=== PATIENT | male | born 1955 | race Caucasian/White ===

== ENCOUNTER 2023-04-13 20:23 | Outpatient (CLI) | payer MEDICARE, BC, SELFPAY ==
--- OUTSIDE RECORDS SUMMARY | 2023-04-13 20:27 | XMS_ITS | Continuity of Care Document ---
Author Name Unknown Organization [facility] Address [address] [place] [address] Phone Care Team Providers Care Gun Welder Name Role Phone Rosie Dunbar MD Unavailable Unavailable Allergies, Adverse Reactions, Alerts Substance Reaction Status Criticality No Known Allergies Active No Inform ation Medications Medication Instructions Dosage Effective Dates (start - stop) Status Comments CYMBALTA (unknown strength) Not Available - Active LIPITOR (unknown strength) Not Available - Active HYDROCODONE-ACETAMINOP HEN (unknown strength) Not Available - Active ELIQUIS (unknown strength) Not Available - Active SOTALOL (unknown strength) Not Available - Active CELEBREX (unknown strength) Not Available - Active OMEPRAZOLE (unknown strength) Not Available - Active LOSARTAN POTASSIUM (unknown strength) Not Available - Active FISH OIL (unknown strength) Not Available - Active Procedures Procedure Date Office/Outpatient Visit,Est, Mod 2019 X-Ray Exam Lower Spine 2-3 Views 2019 Office/Outpatient Visit,Est, Mod 2019 Postop Followup Visit X-Ray Exam Lower Spine 2-3 Views 2019 PSF, Lumbar - PA Reinsertion of Instrumentation - PA PEEK/ Cage/ Implant, For Interbody Fusio n - PA PSF, Lumbar ALIF / OLIF Anterior Lumbar Interbody Fu david Reinsertion of Instrumentation PEEK/ Cage/ Implant, For Interbody Fusio n Autograft, From Same Incision 0 Allograft, Morcelized, and/or BMP Office/Outpatient Visit,Est, Mod 2018 Office/Outpatient Visit,Est, Mod 2018 Office/Outpatient Visit,Est, Mod 2018 Office/Outpatient Visit,Est, Mod 2017 Office/Outpatient Visit,Est, Low 2017 X-Ray Exam Lower Spine 2-3 Views 2017 Office/Outpatient Visit,Est, Mod 2017 X-Ray Exam Lower Spine 2-3 Views 2017 Postop Followup Visit X-Ray Exam Lower Spine 2-3 Views 2017 Postop Followup Visit X-Ray Exam Lower Spine 2-3 Views 2016 Lumbar Spine Fusion, Posterolateral Remove Lumbar Spine Lamina, 1 Seg Insert Spine Fixation, Posterior 2016 Autograft, Spine Surgery, Local 017 Allograft, Spine Surg, Morselized Pa Assist Lumbar Spine Fusion, Posterola teral Remove Lumbar Spine Lamina, 1 Seg Pa Assist Insert Spine Fixation, Posteri or Office/Outpatient Visit,Est, Mod 2016 Office/Outpatient Visit,Est, Mod 2016 X-Ray Exam Lower Spine 2-3 Views 2016 Office/Outpatient Visit,Est, Mod 2016 Office/Outpatient Visit,Est, Mod 2015 Postop Followup Visit Special Serv Nec, Procedor Report Postop Followup Visit Remove Lumbar Spine Lamina, 1 Seg Pa Assist Remove Lumbar Spine Lamina, 1 Seg Office/Outpatient Visit,Est, Mod 2015 Office/Outpatient Visit,New, Mod 2013 X-Ray Exam Lower Spine 2-3 Views 2013 Advance Directives Directive Yes / No Effective Date File Name No Information Encounters Encounter Description Practice Location Reason(s) For Visit Diagnoses Date Provider Providers Copied on Encounter Office/Outpa tient Visit,Est, Mod [facility], [address], [place], [id number], [place] tel:[phone] [facility] Pseudarthrosis after fusion or arthrodesis 0 Mehbod Amir. [facility], [address] [place] [address], [id number] , . tel:[phone] Referring Provider: Beto Kerr [facility] [address] [place] [address], [id number]. tel:[phone] Office/Outpa tient Visit,Est, Mod [facility], [address] [place] [address], [id number], [place] tel:[phone] [facility] Pseudarthrosis after fusion or arthrodesis 0 Rose Gonzalez. [address] [place] [address], [id number] , [place]. tel:[phone] Referring Provider: Beto Kerr [facility] [address] [place] [address], [id number]. tel:[phone] [facility], [address] [place] [address], [id number], [place] tel:[phone] [facility] Pseudarthrosis after fusion or arthrodesis 0 Mehbod Amir. [facility] [place], [address] [place] [address], [id number] , [place]. tel:[phone] Referring Provider: Beto Kerr [facility] [address] [place] [address], [id number]. tel:[phone] [facility], [address], [place], [place], [id number], [place] tel:[phone] [facility] No Information 0 Rose Gonzalez. [address] [place] [address], [id number] , [place]. tel:[phone] Referring Provider: Beto Kerr [facility] [address] [place] [address], [id number]. tel:[phone] [facility], [address] [place] [address], [id number], [place] tel:[phone] [facility] No Information 0 Mehbod Amir. [facility], [address] [place] [address], [place], [place], [id number] , [place]. tel:[phone] Referring Provider: Beto Kerr [address], [address]. tel:[phone] Office/Outpa tient Visit,Est, Mod [facility], [address], [place], [place], [id number], [place] tel:[phone] [facility] Pseudarthrosis after fusion or arthrodesis 9 Mehbod Amir. [facility] [place], [address] [place] [address], [id number] , [place]. tel:[phone] Referring Provider: Beto Kerr [address], [address]. tel:[phone] Office/Outpa tient Visit,Est, Mod [facility], [address] [place] [address], [id number], [place] tel:[phone] [facility] Spinal stenosis, lumbosacral regionSpinal stenosis, lumbar region without neurogenic radha 9 Mehbod Amir. [facility], [address] [place] [address], [place], [place], [id number] , [place]. tel:[phone] Referring Provider: Beto Kerr [address], [address]. tel:[phone] Office/Outpa tient Visit,Est, Mod [facility], [address] [place] [address], [id number], [place] tel:[phone] [facility] Low back pain 0- 9 Mehbod Amir. [facility] [place], [address] [place] [address], [id number] , [place]. tel:[phone] Referring Provider: Beto Kerr [address], [address]. tel:[phone] Office/Outpa tient Visit,Est, Mod [facility], [address], [place], [place], [id number], [place] tel:[phone] [facility] Low back pain 8 Mehbod Amir. [facility], [address] [place] [address], [id number] , [place]. [phone] Referring Provider: Beto Kerr [address], [address]. tel:[phone] Office/Outpa tient Visit,Est, Low [facility], [address], [place], [place], [id number], [place] tel:[phone] [facility] Low back pain 8 Mehbod Amir. [facility], [address] [place] [address], [id number] , [place]. [phone] Referring Provider: Beto Kerr [address], [address]. tel:[phone] Office/Outpa tient Visit,Est, Mod [facility], [address] [place] [address], [id number], [place] [phone] [facility] Spinal stenosis, lumbar region without neurogenic claudication 8 Rose Gonzalez. [address] [place] [address], [id number] , [place]. [phone] Referring Provider: Beto Kerr [address], [address]. tel:[phone] [facility], [address] [place] [address], [id number], [place] tel:[phone] [facility] Encounter for other specified surgical aftercare 8 Rose Gonzalez. [address] [place] [address], [id number] , [place]. [phone] Referring Provider: Beto Kerr [address], [address]. tel:[phone] [facility], [address], [place], [place], [id number], [place] tel:[phone] [facility] Encounter for other specified surgical aftercare Mehbod Amir. [facility] [place], [address] [place] [address], [place], [place], [id number] , [place]. tel:[phone] Referring Provider: Beto Kerr [address], [address]. tel:[phone] [facility], [address], [place], [place], [id number], [place] tel:[phone] [facility] No Information Mehbod Amir. [facility], [address] [place] [address], [place], [place], [id number] , [place]. tel:[phone] Referring Provider: Beto Krer [address], [address]. tel:[phone] [facility], [address], [place], [place], [id number], [place] tel:[phone] [facility] No Information 7 Eckroth Carlos. [address] [place] [address], [place], [place], [id number] , [place]. tel:[phone] Referring Provider: Beto Kerr [address], [address]. tel:[phone] Office/Outpa tient Visit,Est, Mod [facility], [address], [place], [place], [id number], [place] tel:[phone] [facility] Encounter for other specified surgical aftercare 7 Mehbod Amir. [facility], [address] [place] [address], [place], [place], [id number] , [place]. [phone] Referring Provider: Beto Kerr [address], [address]. tel:[phone] Office/Outpa tient Visit,Est, Mod [facility], [address], [place], [place], [id number], [place] tel:[phone] [facility] Spinal stenosis, lumbar region Apr-1 7-201 7 Mehbod Amir. [facility], [address] [place] [address], [place], [place], [id number] , [place]. tel:[phone] Referring Provider: Beto Kerr, [address], [address]. tel:[phone] Office/Outpa tient Visit,Est, Mod [facility], [address], [place], [place], [id number], [place] tel:[phone] [facility] Spinal stenosis, lumbar region Isaías-0 9-201 7 Mehbod Amir. [facility], [address] [place] [address], [id number] , [place]. [phone] Referring Provider: Beto Kerr [address], [address]. tel:[phone] Office/Outpa tient Visit,Est, Mod [facility], [address], [place], [place], [id number], [place] tel:[phone] [facility] Spinal stenosis, lumbar region Dec-0 5-201 6 Mehbod Amir. [facility], [address] [place] [address], [place], [place], [id number] , [place]. [phone] Referring Provider: Beto Kerr [address], [address]. tel:[phone] [facility], [address] [place] [address], [id number], [place] tel:[phone] [facility] Spinal stenosis, lumbar region Oct-3 1-201 6 Eckroth Carlos. [address] [place] [address], [id number] , [place]. [phone] Referring Provider: Beto Kerr [address], [address]. tel:[phone] [facility], [address] [place] [address], [id number], [place] tel:[phone] [facility] Arthrodesis statusSpinal stenosis, lumbar regionHNP - Lumbar Region Sep-1 2-201 6 Mehbod Amir. [facility] [place], [address] [place] [address] [place] [address], [id number] , [place]. tel:[phone] Referring Provider: Beto Kerr [address], [address]. tel:[phone] [facility], [address] [place] [address], [id number], [place] tel:[phone] [facility] No Information May-0 2-201 6 Mehbod Amir. [facility], [address] [place] [address], [id number] , [place]. tel:[phone] Referring Provider: Beto Kerr [address], [address]. tel:[phone] Office/Outpa tient Visit,Est, Mod [facility], [address] [place] [address], [id number], [place] tel:[phone] [facility] [place] Spinal stenosis, lumbar regionOther intervertebral disc displacement, lumbar region Aleks-0 9-201 6 Mehbod Amir. [facility], [address] [place] [address] [address], [place], [place], [id number] , [place]. tel:[phone] Referring Provider: Beto Kerr [address], [address]. tel:[phone] Office/Outpa tient Visit,New, Mod Z [facility], [address] [place] [address], [address], [place] tel:[phone] [facility] No Information May-1 8-201 4 Mehbod Amir. [facility], [address] [place] [address] [address], [place], [place], [id number] , [place]. tel:[phone] Family History Family Member Type Diagnosis Age At Onset Problem (finding) Problem (finding) Payers Payer name Insurance type Covered democrat ID Darlin ochoa(s) [employer] Work [employer] Ins [facility] [id number] [facility] [id number] Social History Type Description Quantity Date Captured Comments Alcohol Use Details Unknown Caffeine Use Details Unknown Tobacco Use Status Smoking Status Former smoker Non-Smoking Tobacco Use Details : No Details Available : No Details Available Sex Male Vital Signs Date / Time: Height Weight BMI Pulse Rate Blood Pressure Temperature Respiratory Rate Body Surface Area Head Circumference Head Circ. Percentile Wt./Matthew. Percentile BMI percentile Pulse Ox Inhaled Ox 10:15 AM 65.00 in 87.543 kg (193.00 lbs) 32.1 2 kg/m eter (2) 98.00 F Chief Complaint And Reason For Visit No Information Reason For Referral Reason For Referral No Information Plan Of Treatment Date Type Action Status Future Order: Radiology Order F/ E Lumbar (F/ELumb), Ordered on: Ordered Future Order: Radiology Order AP Lateral Lumbar (APLatLumb), Ordered on: Ordered History Of Present Illness Encounter Date Complaint History Of Prese nt Illness No Information Functional Status Date Functional Assessmen t No Information Instructions Date Instruction Additional Infor hayes Weight management: I nstructed to return to General Practitioner timeframe: 1 Month. Related to Overweight Weight Management Education Rela mitul to Overweight Instructed to return to General Practitioner timeframe: 1 Month. Related to Unspecified Essential Hypertension Blood Pressure Management Relate d to Unspecified Essential Hypertension Weight management: I nstructed to return to General Practitioner timeframe: 1 Month. Related to Overweight Weight Management Education Rela mitul to Overweight Weight management: I nstructed to return to General Practitioner timeframe: 1 Month. Related to Overweight Weight Management Education Rela mitul to Overweight Weight management: I nstructed to return to General Practitioner timeframe: 1 Month. Related to Overweight Weight Management Education Rela mitul to Overweight Weight management: I nstructed to return to General Practitioner timeframe: 1 Month. Related to Overweight Weight Management Education Rela mitul to Overweight Assessments Type Assessment Date No Information Patient Care Teams Name Effective Dates (start - stop) Status Members No Information
== END 2023-04-13 20:24 | disposition home or self-care (01) ==
LOC: SLEEP 20:25
PROVIDERS: PCP Surgery; Visit Provider Internal Medicine
DX: G47.33 Obstructive sleep apnea (adult) (pediatric) (principal)
CPT/HCPCS: 95811